=== PATIENT | male | born 1990 | race Two or more races ===

== ENCOUNTER 2022-12-11 15:22 | Emergency (ER) | payer OTHER ==
[~2022-12-11] VITALS: Ht 175.3 cm; Wt 89.8 kg
[2022-12-11] MEDS ORDERED: LANTUS SOL100 UNIT/1 SQ (16:39)
== END 2022-12-11 18:27 | disposition home or self-care (01) ==
LOC: ER 15:22
DX: U07.1 COVID-19 (principal)

== ENCOUNTER 2023-10-15 12:32 | Emergency (ER) | payer OTHER ==
[~2023-10-15] VITALS: Ht 180.3 cm; Wt 92.1 kg
[~2023-10-15 12:32] MED LIST: LANTUS SOL100 UNIT/1 SQ
[2023-10-15 17:45] LABS: HEMATOCRIT 47.5 % (39.0-48.0); HEMOGLOBIN 16.6 g/dL (13-16.00); MEAN CELL VOLUME 87.8 fL (80.0-100.00); MEAN CORPUSCULAR HEMOGLOBIN 30.7 pg (27.00-32.0); PLATELET COUNT 298 K/uL (150-450); RED BLOOD COUNT 5.41 M/uL (4.00-6.00); RED CELL DISTRIBUTION WIDTH 12.9 % (11.5-14.5)
== END 2023-10-15 19:42 | disposition home or self-care (01) ==
LOC: ER 12:32
PROVIDERS: General Practice
DX: J06.9 Acute upper respiratory infection, unspecified (principal); J00 Acute nasopharyngitis [common cold]; E11.9 Type 2 diabetes mellitus without complications; Z79.4 Long term (current) use of insulin; Z20.822 Contact with and (suspected) exposure to COVID-19

== ENCOUNTER 2024-11-28 15:26 | Emergency (ER) | payer OTHER ==
[~2024-11-28] VITALS: Ht 180.3 cm; Wt 90.7 kg
[2024-11-28] MEDS ORDERED: HUMALOG KW100 UNIT/1 SQ (16:14)
[2024-11-28 19:18] LABS: HEMATOCRIT 49.8 % (39.0-48.0); HEMOGLOBIN 17.4 g/dL (13-16.00); MEAN CELL VOLUME 88.5 fL (80.0-100.00); MEAN CORPUSCULAR HEMOGLOBIN 30.9 pg (27.00-32.0); MEAN CORPUSCULAR HGB CONC 34.9 g/dl (32.0-36.0); PLATELET COUNT 330 K/uL (150-450); RED BLOOD COUNT 5.62 M/uL (4.00-6.00); RED CELL DISTRIBUTION WIDTH 12.6 % (11.5-14.5)
[2024-11-28] MEDS ORDERED: ZITHROMAX TRI-500 MG PO (21:58)
[2024-11-28] MEDS ORDERED: GILTUSS COUGH-118 M1 PO (21:58)
[2024-11-28] MEDS ORDERED: ACETAMINOPHEN500 M1 PO (21:58)
== END 2024-11-28 22:06 | disposition home or self-care (01) ==
LOC: ER 15:29
PROVIDERS: Preventive Medicine Public Health & General Preventive Medicine
DX: J06.9 Acute upper respiratory infection, unspecified (principal); Z20.822 Contact with and (suspected) exposure to COVID-19; E11.9 Type 2 diabetes mellitus without complications; Z79.4 Long term (current) use of insulin